=== PATIENT | male | born 1960 | race Caucasian/White ===

== ENCOUNTER 2021-11-28 16:12 | Emergency (ER) | payer OTHER ==
[~2021-11-28] VITALS: Ht 190.5 cm; Wt 133.3 kg
[2021-11-28] MEDS ORDERED: ASPIRIN 81 MG CHEW TABLET PO ONE (16:30)
[2021-11-28 16:58] LABS: BASO # 0.1 10^3/uL (0.0-0.2); EOS # 0.3 10^3/uL (0.0-0.5); EOS % 4.6 % (0.0-3.0); HEMATOCRIT 41.9 % (42.0-52.0); HEMOGLOBIN 14.6 g/dl (13.5-17.5); LYMPH # 1.3 10^3/uL (1.5-5.0); LYMPH % 20.6 % (24.0-44.0); MEAN CORPUSCULAR HEMOGLOBIN 29.3 pg (27.0-33.0); MEAN CORPUSCULAR HGB CONC 34.8 g/dl (32.0-36.5); MONO # 0.6 10^3/uL (0.0-0.8); PLATELET COUNT, AUTOMATED 276 10^3/uL (150-450); RED BLOOD COUNT 4.99 10^6/uL (4.30-6.10); WHITE BLOOD COUNT 6.3 10^3/uL (4.0-10.0)
[2021-11-28 17:28] LABS: ALBUMIN 3.7 GM/DL (3.2-5.2); ALT/SGPT 88 U/L (12-78); BILIRUBIN,DIRECT < 0.1 MG/DL (0.0-0.2); BILIRUBIN,TOTAL 0.4 MG/DL (0.2-1.0); BLOOD UREA NITROGEN 26 MG/DL (7-18); CALCIUM LEVEL 8.9 MG/DL (8.8-10.2); CARBON DIOXIDE LEVEL 27 MEQ/L (21-32); CHLORIDE LEVEL 103 MEQ/L (98-107); CREATININE FOR GFR 1.22 MG/DL (0.70-1.30); GLOMERULAR FILTRATION RATE > 60.0 (>49); GLUCOSE, FASTING 175 MG/DL (70-100); LIPASE 171 U/L (73-393); NT-PRO BNP 41 PG/ML (<125); POTASSIUM SERUM 3.9 MEQ/L (3.5-5.1); SODIUM LEVEL 138 MEQ/L (136-145); TOTAL PROTEIN 7.1 GM/DL (6.4-8.2)
[2021-11-28 17:32] LABS: INR 0.94; PARTIAL THROMBOPLASTIN TIME 26.4 SECONDS (25.9-37.0)
[2021-11-28] MEDS ORDERED: HEPARIN SOD (PORCINE) 5000UNITS/ML 1ML VIAL/SYRINGE IV ONE (17:40)
[2021-11-28] MEDS ORDERED: CLOPIDOGREL 300 MG TAB (PLAVIX) PO ONE (17:40)
[2021-11-28] MEDS ORDERED: HEPARIN DRIP 25,000 UNITS in IV 1 EA IV SCH (17:40)
[2021-11-28] MEDS ORDERED: METOPROLOL TART 50 MG TAB PO ONE (17:55)
[2021-11-28 18:52] LABS: RSV AMPLIFICATION NEGATIVE (NEGATIVE)
[2021-11-28 19:49] VITALS: BP 122/75
== END 2021-11-28 19:57 | disposition short-term general hospital (02) ==
LOC: M ED 16:12
DX: I20.0 Unstable angina (principal); I10 Essential (primary) hypertension; R94.31 Abnormal electrocardiogram [ECG] [EKG]; E78.5 Hyperlipidemia, unspecified; F10.10 Alcohol abuse, uncomplicated
CPT/HCPCS: 71045; 80048; 80076; 83690; 83880; 84484; 85025; 85610; 85730; 87631; 93005; 93041; 94760; 96361; 96374; 99285; J1644

== ENCOUNTER → 2022-11-16 | Outpatient (CLI) | payer OTHER | LOC: M RAD 12:21 | PROVIDERS: ATTEND Physician Assistant | DX: G62.9 Polyneuropathy, unspecified (principal) ==

== ENCOUNTER → 2024-06-11 | Outpatient (CLI) | payer OTHER | LOC: M WUC 15:43 | PROVIDERS: ATTEND Student in an Organized Health Care Education/Training Program | DX: M25.511 Pain in right shoulder (principal); M19.011 Primary osteoarthritis, right shoulder ==